=== PATIENT | male | born 1950 | race Caucasian/White ===

== ENCOUNTER → 2017-01-19 | Outpatient (CLI) | payer MEDICARE, BC ==
--- NOTE | 2017-01-19 10:39 | MR ---
EXAMINATION TYPE: MR shoulder LT wo con DATE OF EXAM: 01/19/2017 10:18 AM COMPARISON: NONE HISTORY: lt shoulder pain TECHNIQUE: Multiplanar, multisequence imaging of the left shoulder is performed without contrast. FINDINGS: Rotator Cuff: There is a through thickness tear of the distal margin of the supraspinatus tendon gertrude uring 12 x 6 mm. Additionally near the musculotendinous junction there appears to be an additional ar ea of severe tendinopathy and partial through thickness tear measuring 5 mm. Increased abnormal signal involving the distal margin of the infraspinatus tendon seen with partial t hrough thickness tear near the insertion and no retraction. There is thickening and increased signal throughout the distal margin the subscapularis tendon compat ible with tendinosis. Acromioclavicular Joint: Hypertrophic change of the AC joint noted with findings compatible with impi ngement. Mild atrophic changes of the supraspinatus and infraspinatus muscles noted. Glenohumeral Joint: No sizable joint effusion. Glenohumeral ligaments appear intact. Labrum: Truncation of the anterior superior labrum suspicious for tear. Biceps Tendon: The long head of biceps is in normal location within bicipital groove. There is thinni ng of the intracapsular portion of the biceps tendon and biceps anchor compatible with tendinopathy a nd partial tear. No retraction. Bone marrow signal: No focal abnormal marrow signal is appreciated. Other: No additional significant abnormality is appreciated. IMPRESSION: 1. Impingement with diffuse tendinopathy involving the supraspinatus, infraspinatus and subscapularis tendons. 2. Partial through thickness tear involving the distal margin supraspinatus tendon measuring 12 mm. A dditional tear near the musculotendinous junction compatible with partial through thickness tear gertrude uring 5 mm. 3. Tendinopathy infraspinatus tendon with partial tear near the insertion through thickness but no re traction. 4. Thickening and increased signal throughout the distal margin of the subscapularis compatible with tendinosis. 5. Anterior superior labral tear 6. Thinning and increased signal within the intracapsular portion of the biceps tendon extending the biceps anchor compatible tendinopathy and probable intrasubstance tear but no retraction or through t hickness tear.
== END | disposition home or self-care (01) ==
LOC: RADMRIMAIN 09:40
PROVIDERS: ATTEND Orthopaedic Surgery
DX: M75.112 Incomplete rotator cuff tear or rupture of left shoulder, not specified as traumatic (principal); S43.402A Unspecified sprain of left shoulder joint, initial encounter; S46.812A Strain of other muscles, fascia and tendons at shoulder and upper arm level, left arm, initial encounter; M25.812 Other specified joint disorders, left shoulder; M67.814 Other specified disorders of tendon, left shoulder; R93.7 Abnormal findings on diagnostic imaging of other parts of musculoskeletal system

== ENCOUNTER 2017-04-12 23:11 | Inpatient (IN) | payer MEDICARE, BC ==
[2017-04-12 23:23] VITALS: RESP 16
[2017-04-13 00:38] LABS: Basophils # (A) 0.1 k/uL (0-0.2); Basophils % (A) 1 %; CH 31.1; Eosinophils # (A) 0.2 k/uL (0-0.7); Eosinophils % (A) 2 %; HCT 39.9 % (39.0-53.0); HDW 2.67; HGB 13.6 gm/dL (13.0-17.5); Luc % (Auto) 1; Lymphocytes # (A) 1.3 k/uL (1.0-4.8); Lymphocytes % (A) 14 %; MCH 30.5 pg (25.0-35.0); MCHC 34.2 g/dL (31.0-37.0); MCV 89.3 fL (80.0-100.0); Mean Platelet Volume 7.4; Monocytes # (A) 0.4 k/uL (0-1.0); Monocytes % (A) 4 %; Neutrophils # (A) 7.5 k/uL (1.3-7.7); Neutrophils % (A) 78 %; RBC 4.47 m/uL (4.30-5.90); RDW 13.3 % (11.5-15.5); WBC 9.6 k/uL (3.8-10.6); WBC (Perox) 9.29
[2017-04-13 00:40] LABS: Appearance,Urine Clear (Clear); Bilirubin,Urine Negative (Negative); Glucose,Urine (UA) Negative (Negative); Ketones,Urine Negative (Negative); Leukocyte Esterase,Urine Negative (Negative); Nitrite,Urine Negative (Negative); PH, Urine 6.5 (5.0-8.0); Protein,Urine Trace (Negative); Specific Gravity,Urine 1.009 (1.001-1.035); UA Billing (MACRO vs. MICRO) CHEM; Urobilinogen,Urine <2.0 mg/dL (<2.0)
--- NOTE | 2017-04-13 00:45 | ED ---
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 History is from both the patient and his . The patient states that he was feeling in his usual state of health until going to bed tonight. The patient's noted that he had a short interval of what sounded like lipsmacking and she woke him up. The patient has a history of brief episodes of this going back years. He will have a few seconds of lipsmacking followed by staring off. They had been seen by the neurologist, and a had follow-up set up in [place] in May for this issue. After the patient's woke him, he use the bathroom and went back to bed. Shortly after lying down he then had what sounds like about 2 minutes of tonic-clonic activity followed by what sounds like a 5-10 minute postictal period per his 's description. The patient is reportedly now back at his baseline. The patient states that he does have a mild, generalized headache. Is deftly not worst headache of life. The patient is denying any neurologic symptoms currently. MD Complaint: seizure -: minutes(s) Description of Episode: loss of consciousness, tonic-clonic movement, post- event confusion Duration of Episode: 2 -: minutes(s) Witnessed: yes - by bystander () Trauma: No Seizure History: other Place: home Possible Precipitating Event: none Associated Symptoms: denies other symptoms Treatments Prior to Arrival: none - Related Data Home Medications Medication Instructions Recorded Confirmed amLODIPine [Norvasc] 10 mg PO DAILY 08/08/16 04/12/17 Aspirin [Adult Low Dose Aspirin EC] 81 mg PO DAILY 08/09/16 04/12/17 Atorvastatin [Lipitor] 80 mg PO DAILY 08/09/16 04/12/17 Cholecalciferol [Vitamin D3] 2,000 unit PO DAILY 08/09/16 04/12/17 Lisinopril [Zestril] 5 mg PO DAILY 08/09/16 04/12/17 Metoprolol Tartrate [Lopressor] 50 mg PO DAILY 08/09/16 04/12/17 Nitroglycerin Sl Tabs [Nitrostat] 0.4 mg SL Q5M PRN 08/09/16 04/12/17 Tamsulosin HCl [Flomax] 0.4 mg PO DAILY 08/09/16 04/12/17 Ascorbic Acid [Vitamin C] 1,000 mg PO DAILY 04/12/17 04/12/17 Multivitamins, Thera [Multivitamin 1 tab PO DAILY 04/12/17 04/12/17 (formulary)] Psyllium Husk 100% [Metamucil 6 gm PO DAILY 04/12/17 04/12/17 Packet] Allergies Allergy/AdvReac Type Severity Reaction Status Date / Time No Known Allergies Allergy Verified 04/12/17 23:20 Review of Systems ROS Statement: Those systems with pertinent positive or pertinent negative responses have been documented in the HPI. ROS Other: All systems not noted in ROS Statement are negative. Constitutional: Denies: fever, chills, weakness Eyes: Denies: vision change ENT: Denies: ear pain, hearing loss Respiratory: Denies: cough, dyspnea Cardiovascular: Denies: chest pain, palpitations, edema, syncope Gastrointestinal: Denies: abdominal pain, vomiting, diarrhea Genitourinary: Denies: dysuria, hematuria Musculoskeletal: Denies: back pain Skin: Denies: rash Neurological: Reports: as per HPI, headache, other (Possible seizure). Denies: weakness, numbness, paresthesias, confusion Past Medical History Past Medical History: Coronary Artery Disease (CAD), Cancer, Hyperlipidemia, Hypertension, Myocardial Infarction ([place]), Prostate Disorder Additional Past Medical History / Comment(s): melanoma on top of scalp Last Myocardial Infarction Date:: 01/13/14 History of Any Multi-Drug Resistant Organisms: None Reported Past Surgical History: Heart Catheterization With Stent, Orthopedic Surgery Additional Past Surgical History / Comment(s): rotator cuff surgery (8 yrs ago) Past Anesthesia/Blood Transfusion Reactions: No Reported Reaction Date of Last Stent Placement:: 01/13/14 Past Psychological History: No Psychological Hx Reported Smoking Status: Former smoker Past Alcohol Use History: Occasional Past Drug Use History: None Reported - Past Family History Father Family Medical History: Coronary Artery Disease (CAD), Hypertension, Myocardial Infarction ([place]) Mother Family Medical History: Cancer General Exam Limitations: no limitations General appearance: alert, in no apparent distress Head exam: Present: atraumatic, normocephalic, normal inspection Eye exam: Present: normal appearance, PERRL, EOMI. Absent: scleral icterus, conjunctival injection, nystagmus ENT exam: Present: normal oropharynx Neck exam: Present: normal inspection. Absent: meningismus Respiratory exam: Present: normal lung sounds bilaterally. Absent: respiratory distress, wheezes, rales, rhonchi, stridor Cardiovascular Exam: Present: regular rate, normal rhythm, systolic murmur ( Grade 3/6 systolic ejection murmur). Absent: diastolic murmur, rubs, gallop GI/Abdominal exam: Present: soft. Absent: distended, tenderness, guarding, rebound, mass Extremities exam: Present: normal inspection, normal capillary refill. Absent: pedal edema, calf tenderness Back exam: Present: normal inspection. Absent: CVA tenderness (R), CVA tenderness (L) Neurological exam: Present: alert, oriented X3, CN II-XII intact. Absent: motor sensory deficit Skin exam: Present: warm, dry, intact, normal color. Absent: rash Course Vital Signs 04/12/17 04/13/17 04/13/17 23:14 00:28 02:02 Temperature 97.7 F Pulse Rate 91 78 66 Respiratory 16 16 16 Rate Blood Pressure 153/88 153/88 190/62 O2 Sat by Pulse 94 L 96 97 Oximetry 04/13/17 02:32 Temperature Pulse Rate 73 Respiratory 16 Rate Blood Pressure 151/77 O2 Sat by Pulse 96 Oximetry Medical Decision Making - Lab Data Result diagrams: 04/13/17 00:25 04/13/17 00:25 Lab Results 04/13/17 04/13/17 04/13/17 Range/Units 00:25 00:25 00:25 WBC 9.6 (3.8-10.6) k/uL RBC 4.47 (4.30-5.90) m/uL Hgb 13.6 (13.0-17.5) gm/dL Hct 39.9 (39.0-53.0) % MCV 89.3 (80.0-100.0) fL MCH 30.5 (25.0-35.0) pg MCHC 34.2 (31.0-37.0) g/dL RDW 13.3 (11.5-15.5) % Plt Count 187 (150-450) k/uL Neutrophils % 78 % Lymphocytes % 14 % Monocytes % 4 % Eosinophils % 2 % Basophils % 1 % Neutrophils # 7.5 (1.3-7.7) k/uL Lymphocytes # 1.3 (1.0-4.8) k/uL Monocytes # 0.4 (0-1.0) k/uL Eosinophils # 0.2 (0-0.7) k/uL Basophils # 0.1 (0-0.2) k/uL Sodium 139 (137-145) mmol/L Potassium 3.6 (3.5-5.1) mmol/L Chloride 107 (98-107) mmol/L Carbon Dioxide 22 (22-30) mmol/L Anion Gap 10 mmol/L BUN 13 (9-20) mg/dL Creatinine 0.80 (0.66-1.25) mg/dL Est GFR (MDRD) Af Amer >60 (>60 ml/min/1.73 sqM) Est GFR (MDRD) Non-Af >60 (>60 ml/min/1.73 sqM) Glucose 115 H (74-99) mg/dL POC Glucose (mg/dL) (75-99) mg/dL POC Glu Marketing Education Teacher ID Calcium 8.7 (8.4-10.2) mg/dL Total Bilirubin 0.6 (0.2-1.3) mg/dL AST 21 (17-59) U/L ALT 35 (21-72) U/L Alkaline Phosphatase 52 (38-126) U/L Total Protein 6.2 L (6.3-8.2) g/dL Albumin 3.9 (3.5-5.0) g/dL Urine Color Light Yellow Urine Appearance Clear (Clear) Urine pH 6.5 (5.0-8.0) Ur Specific Morrison 1.009 (1.001-1.035) Urine Protein Trace H (Negative) Urine Glucose (UA) Negative (Negative) Urine Ketones Negative (Negative) Urine Blood Negative (Negative) Urine Nitrite Negative (Negative) Urine Bilirubin Negative (Negative) Urine Urobilinogen <2.0 (<2.0) mg/dL Ur Leukocyte Esterase Negative (Negative) Urine Opiates Screen Not Detected (NotDetected) Ur Oxycodone Screen Not Detected (NotDetected) Urine Methadone Screen Not Detected (NotDetected) Ur Propoxyphene Screen Not Detected (NotDetected) Ur Barbiturates Screen Not Detected (NotDetected) U Tricyclic Antidepress Not Detected (NotDetected) Ur Phencyclidine Scrn Not Detected (NotDetected) Ur Amphetamines Screen Not Detected (NotDetected) U Methamphetamines Scrn Not Detected (NotDetected) U Benzodiazepines Scrn Not Detected (NotDetected) Urine Cocaine Screen Not Detected (NotDetected) U Marijuana (THC) Screen Not Detected (NotDetected) Serum Alcohol <10 mg/dL 04/13/17 Range/Units 02:35 WBC (3.8-10.6) k/uL RBC (4.30-5.90) m/uL Hgb (13.0-17.5) gm/dL Hct (39.0-53.0) % MCV (80.0-100.0) fL MCH (25.0-35.0) pg MCHC (31.0-37.0) g/dL RDW (11.5-15.5) % Plt Count (150-450) k/uL Neutrophils % % Lymphocytes % % Monocytes % % Eosinophils % % Basophils % % Neutrophils # (1.3-7.7) k/uL Lymphocytes # (1.0-4.8) k/uL Monocytes # (0-1.0) k/uL Eosinophils # (0-0.7) k/uL Basophils # (0-0.2) k/uL Sodium (137-145) mmol/L Potassium (3.5-5.1) mmol/L Chloride (98-107) mmol/L Carbon Dioxide (22-30) mmol/L Anion Gap mmol/L BUN (9-20) mg/dL Creatinine (0.66-1.25) mg/dL Est GFR (MDRD) Af Amer (>60 ml/min/1.73 sqM) Est GFR (MDRD) Non-Af (>60 ml/min/1.73 sqM) Glucose (74-99) mg/dL POC Glucose (mg/dL) 126 H (75-99) mg/dL POC Glu Marketing Education Teacher ID [place], Ting Calcium (8.4-10.2) mg/dL Total Bilirubin (0.2-1.3) mg/dL AST (17-59) U/L ALT (21-72) U/L Alkaline Phosphatase (38-126) U/L Total Protein (6.3-8.2) g/dL Albumin (3.5-5.0) g/dL Urine Color Urine Appearance (Clear) Urine pH (5.0-8.0) Ur Specific Morrison (1.001-1.035) Urine Protein (Negative) Urine Glucose (UA) (Negative) Urine Ketones (Negative) Urine Blood (Negative) Urine Nitrite (Negative) Urine Bilirubin (Negative) Urine Urobilinogen (<2.0) mg/dL Ur Leukocyte Esterase (Negative) Urine Opiates Screen (NotDetected) Ur Oxycodone Screen (NotDetected) Urine Methadone Screen (NotDetected) Ur Propoxyphene Screen (NotDetected) Ur Barbiturates Screen (NotDetected) U Tricyclic Antidepress (NotDetected) Ur Phencyclidine Scrn (NotDetected) Ur Amphetamines Screen (NotDetected) U Methamphetamines Scrn (NotDetected) U Benzodiazepines Scrn (NotDetected) Urine Cocaine Screen (NotDetected) U Marijuana (THC) Screen (NotDetected) Serum Alcohol mg/dL - EKG Data -: EKG Interpreted by Ok EKG shows normal: sinus rhythm, axis (Normal), intervals (Normal), QRS complexes (Normal), ST-T waves (Normal) Rate: normal (Rate 87 bpm) Interpretation: normal EKG Disposition Clinical Impression: New onset seizure Disposition: ADMITTED IP TO THIS [facility] Condition: Good Referrals: Kenneth Calvert DO [Primary Care Provider] - 1-2 days
[2017-04-13 00:49] LABS: ALT 35 U/L (21-72); AST 21 U/L (17-59); Alcohol <10 mg/dL; Alkaline Phosphatase 52 U/L (38-126); Anion Gap 10 mmol/L; Blood Urea Nitrogen 13 mg/dL (9-20); Calcium 8.7 mg/dL (8.4-10.2); Carbon Dioxide 22 mmol/L (22-30); Chloride 107 mmol/L (98-107); Glucose 115 mg/dL (74-99); Non-African American GFR(MDRD) >60 (>60 ml/min/1.73 sqM); Potassium 3.6 mmol/L (3.5-5.1); Sodium 139 mmol/L (137-145); Total Bilirubin 0.6 mg/dL (0.2-1.3); Total Protein 6.2 g/dL (6.3-8.2)
--- NOTE | 2017-04-13 01:26 | CT ---
EXAM: CT Head Without Intravenous Contrast CLINICAL HISTORY: Reason: seizure TECHNIQUE: Axial computed tomography images of the head/brain without intravenous contrast. CTDI is 58.00 mGy and DLP is 1075.40 mGy-cm. This CT exam was performed using one or more of the following dose reduction techniques: automated exposure control, adjustment of the mA and/or kV according to patient size, and/or use of iterative reconstruction technique. COMPARISON: 08/08/[address] FINDINGS: Brain: There is again mild generalized volume loss with minimal presumed chronic small vessel ischemic changes. No identifiable acute or recent territorial infarct. No space-occupying mass lesion, mass effect, shift or intracranial hemorrhage has developed. Ventricles: Ventricles are stable without evidence of hydrocephalus. Bones/joints: Stable. No acute fracture. Soft tissues: Unremarkable. Vasculature: Intracranial atherosclerosis is noted. Sinuses: There is again mild diffuse paranasal sinus mucosal thickening without air-fluid level seen. Mastoid air cells: Unremarkable. No mastoid effusion. IMPRESSION: 1. Stable chronic appearing findings, without new acute intracranial abnormality identified, as above. Note, early infarct may initially be inapparent by CT. 2. There is again mild diffuse paranasal sinus mucosal thickening.
[2017-04-13 02:39] LABS: Glucose,Whole Blood 126 mg/dL (75-99)
[2017-04-13] MEDS ORDERED: SODIUM CHLORIDE 0.9% 1,000 ML IV SCH (03:00)
[2017-04-13] MEDS ORDERED: NALOXONE 0.4 MG/ML 1 ML VIAL IV PRN (03:00)
[2017-04-13 04:32] VITALS: BMI 33.8
[2017-04-13] MEDS ORDERED: MULTIVITAMINS, THERA 1 EACH TAB PO SCH (09:00)
[2017-04-13] MEDS ORDERED: METOPROLOL TARTRATE 50 MG TAB PO SCH (09:00)
[2017-04-13] MEDS ORDERED: LISINOPRIL 5 MG TAB PO SCH (09:00)
[2017-04-13] MEDS ORDERED: amLODIPine 10 MG TAB PO SCH (09:00)
[2017-04-13] MEDS ORDERED: TAMSULOSIN 0.4 MG CAP.ER.24H PO SCH (09:00)
[2017-04-13] MEDS ORDERED: ASCORBIC ACID 500 MG TAB PO SCH (09:00)
[2017-04-13] MEDS ORDERED: ATORVASTATIN 80 MG TAB PO SCH (09:00)
[2017-04-13] MEDS ORDERED: CHOLECALCIFEROL 1,000 UNIT TAB PO SCH (09:00)
[2017-04-13] MEDS ORDERED: PSYLLIUM HUSK 100% 6 GM PACKET PO SCH ×2 (09:00→21:00)
[2017-04-13] MEDS ORDERED: ASPIRIN 81 MG CHEW PO SCH (09:00)
[2017-04-13 15:09] VITALS: BP 158/79; PULSE 57; TEMP 97.9
--- NOTE | 2017-04-13 16:42 | P.HPIM ---
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 History is from both the patient and his . The patient states that he was feeling in his usual state of health until going to bed tonight. The patient's noted that he had a short interval of what sounded like lipsmacking and she woke him up. The patient has a history of brief episodes of this going back years. He will have a few seconds of lipsmacking followed by staring off. They had been seen by the neurologist, and a had follow-up set up in [place] in May for this issue. After the patient's woke him, he use the bathroom and went back to bed. Shortly after lying down he then had what sounds like about 2 minutes of tonic-clonic activity followed by what sounds like a 5-10 minute postictal period per his 's description. The patient is reportedly now back at his baseline. The patient states that he does have a mild, generalized headache. Is deftly not worst headache of life. The patient is denying any neurologic symptoms Most of the history was obtained from a ER physician's dictation, patient only partially remembers the history and family is not available. Patient was later valid by neurology and EEG was done which was negative. MRI was done in [facility] and patient has a follow-up appointment in [facility] I do not have an MRA results available at this point of time but neurology cleared him for discharge to follow up with neurology as an outpatient in [facility]. Review of Systems REVIEW OF SYSTEMS: CONSTITUTIONAL: No fever, no malaise, no fatigue. HEENT: No recent visual problems or hearing problems. Denied any sore throat. CARDIOVASCULAR: No chest pain, orthopnea, PND, no palpitations, no syncope. PULMONARY: No shortness of breath, no cough, no hemoptysis. GASTROINTESTINAL: No diarrhea, no nausea, no vomiting, no abdominal pain. Normoactive bowel sounds. NEUROLOGICAL: No headaches, no weakness, no numbness. HEMATOLOGICAL: Denies any bleeding or petechiae. GENITOURINARY: Denies any burning micturition, frequency, or urgency. MUSCULOSKELETAL/RHEUMATOLOGICAL: Denies any joint pain, swelling, or any muscle pain. ENDOCRINE: Denies any polyuria or polydipsia. The rest of the 14-point review of systems is negative. Past Medical History Past Medical History: Coronary Artery Disease (CAD), Cancer, Hyperlipidemia, Hypertension, Myocardial Infarction ([place]), Prostate Disorder Additional Past Medical History / Comment(s): melanoma on top of scalp. past seizure like episodes Last Myocardial Infarction Date:: 01/13/14 History of Any Multi-Drug Resistant Organisms: None Reported Past Surgical History: Heart Catheterization With Stent, Orthopedic Surgery Additional Past Surgical History / Comment(s): right rotator cuff surgery (8 yrs ago), torn tendon repair to left arm. Past Anesthesia/Blood Transfusion Reactions: No Reported Reaction Date of Last Stent Placement:: 01/13/14 Past Psychological History: No Psychological Hx Reported Smoking Status: Former smoker Past Alcohol Use History: Daily Additional Past Alcohol Use History / Comment(s): patient stated has 2 shots of whiskey a day. occasional beer Past Drug Use History: None Reported - Past Family History Father Family Medical History: Coronary Artery Disease (CAD), Hypertension, Myocardial Infarction ([place]) Mother Family Medical History: Cancer Medications and Allergies Home Medications Medication Instructions Recorded Confirmed Type amLODIPine [Norvasc] 10 mg PO DAILY 08/08/16 04/12/17 History Aspirin [Adult Low Dose Aspirin EC] 81 mg PO DAILY 08/09/16 04/12/17 History Atorvastatin [Lipitor] 80 mg PO DAILY 08/09/16 04/12/17 History Cholecalciferol [Vitamin D3] 2,000 unit PO DAILY 08/09/16 04/12/17 History Lisinopril [Zestril] 5 mg PO DAILY 08/09/16 04/12/17 History Metoprolol Tartrate [Lopressor] 50 mg PO DAILY 08/09/16 04/12/17 History Nitroglycerin Sl Tabs [Nitrostat] 0.4 mg SL Q5M PRN 08/09/16 04/12/17 History Tamsulosin HCl [Flomax] 0.4 mg PO DAILY 08/09/16 04/12/17 History Ascorbic Acid [Vitamin C] 1,000 mg PO DAILY 04/12/17 04/12/17 History Multivitamins, Thera [Multivitamin 1 tab PO DAILY 04/12/17 04/12/17 History (formulary)] Psyllium Husk 100% [Metamucil 6 gm PO DAILY 04/12/17 04/12/17 History Packet] Allergies Allergy/AdvReac Type Severity Reaction Status Date / Time No Known Allergies Allergy Verified 04/12/17 23:20 Physical Exam Vitals: Vital Signs Temp Pulse Pulse Resp BP BP Pulse Ox 04/13/17 15:00 97.9 F 57 L 16 158/79 95 04/13/17 07:00 99.1 F 58 L 16 133/81 94 L 04/13/17 04:35 97.3 F L 63 16 136/84 95 04/13/17 03:59 98.3 F 66 16 143/83 96 04/13/17 02:32 73 16 151/77 96 04/13/17 02:02 97.7 F 66 16 190/62 97 04/13/17 00:28 78 16 153/88 96 04/12/17 23:14 91 16 153/88 94 L Intake and Output 04/13/17 04/13/17 04/13/17 06:59 14:59 22:59 Output Total 350 Balance -350 Output: Urine 350 Other: # Voids 2 Weight 110 kg 110 kg Patient Weight 04/14/17 06:59 Weight 110 kg PHYSICAL EXAMINATION: GENERAL: The patient is alert and oriented x3, not in any acute distress. Well developed, well nourished. HEENT: Pupils are round and equally reacting to light. EOMI. No scleral icterus. No conjunctival pallor. Normocephalic, atraumatic. No pharyngeal erythema. No thyromegaly. CARDIOVASCULAR: S1 and S2 present. No murmurs, rubs, or gallops. PULMONARY: Chest is clear to auscultation, no wheezing or crackles. ABDOMEN: Soft, nontender, nondistended, normoactive bowel sounds. No palpable organomegaly. MUSCULOSKELETAL: No joint swelling or deformity. EXTREMITIES: No cyanosis, clubbing, or pedal edema. NEUROLOGICAL: Gross neurological examination did not reveal any focal deficits. SKIN: No rashes. Results CBC & Chem 7: 04/13/17 00:25 04/13/17 00:25 Labs: Abnormal Lab Results - Last 24 Hours (Table) 04/13/17 04/13/17 04/13/17 Range/Units 00:25 00:25 02:35 Glucose 115 H (74-99) mg/dL POC Glucose (mg/dL) 126 H (75-99) mg/dL Total Protein 6.2 L (6.3-8.2) g/dL Urine Protein Trace H (Negative) Thrombosis Risk Factor Assmnt - Choose All That Apply Any of the Below Risk Factors Present?: Yes Each Factor Represents 1 point: Obesity (BMI >25) Other Risk Factors: Yes Other congenital or acquired thrombophilia - If yes, enter type in comment: No Thrombosis Risk Factor Assessment Total Risk Factor Score: 1 Thrombosis Risk Factor Assessment Level: Low Risk Assessment and Plan Plan: 1 patient is admitted for possibly a seizure: Although there is need no evidence of seizure on EEG neurology validate the patient and that not requiring any antiseizure medications patient will follow up with neurology clinic in [facility]. #2 coronary artery disease 3 hypertension 4 hyperlipidemia #5 prostate disorder Above mentioned chronic medical problems patient will continue his home medications.
--- NOTE | 2017-04-13 16:42 | P.DS ---
Providers Date of admission: 04/13/17 03:01 Attending physician: Teresa Finn Consults: 04/13/17 03:08 Consult Physician Routine Consulting Provider: Gerald Lindsay Consult Reason/Comments: new onset seizure Do you want consulting provider notified?: Yes [facility] Course: Please refer to my HPI Patient Condition at Discharge: Good Plan - Discharge Summary New Discharge Prescriptions: No Action amLODIPine [Norvasc] 10 mg PO DAILY Atorvastatin [Lipitor] 80 mg PO DAILY Cholecalciferol [Vitamin D3] 2,000 unit PO DAILY Nitroglycerin Sl Tabs [Nitrostat] 0.4 mg SL Q5M PRN PRN Reason: Chest Pain Metoprolol Tartrate [Lopressor] 50 mg PO DAILY Tamsulosin HCl [Flomax] 0.4 mg PO DAILY Lisinopril [Zestril] 5 mg PO DAILY Aspirin [Adult Low Dose Aspirin EC] 81 mg PO DAILY Multivitamins, Thera [Multivitamin (formulary)] 1 tab PO DAILY Psyllium Husk 100% [Metamucil Packet] 6 gm PO DAILY Ascorbic Acid [Vitamin C] 1,000 mg PO DAILY Discharge Medication List amLODIPine [Norvasc] 10 mg PO DAILY 08/08/16 [History] Aspirin [Adult Low Dose Aspirin EC] 81 mg PO DAILY 08/09/16 [History] Atorvastatin [Lipitor] 80 mg PO DAILY 08/09/16 [History] Cholecalciferol [Vitamin D3] 2,000 unit PO DAILY 08/09/16 [History] Lisinopril [Zestril] 5 mg PO DAILY 08/09/16 [History] Metoprolol Tartrate [Lopressor] 50 mg PO DAILY 08/09/16 [History] Nitroglycerin Sl Tabs [Nitrostat] 0.4 mg SL Q5M PRN 08/09/16 [History] Tamsulosin HCl [Flomax] 0.4 mg PO DAILY 08/09/16 [History] Ascorbic Acid [Vitamin C] 1,000 mg PO DAILY 04/12/17 [History] Multivitamins, Thera [Multivitamin (formulary)] 1 tab PO DAILY 04/12/17 [History ] Psyllium Husk 100% [Metamucil Packet] 6 gm PO DAILY 04/12/17 [History] Follow up Appointment(s)/Referral(s): Kenneth Calvert DO [Primary Care Provider] - 3 Days
--- NOTE | 2017-04-13 18:11 | P.CNNES ---
History of Present Illness Consult date: 04/13/17 Reason for Consult: Patient admitted with new onset seizure. History of Present Illness: This patient is a 66-year-old right-handed white male who was admitted to hospital yesterday with possible new onset seizure. According to the patient he has been evaluated over the last 6 months for recurrent episodes and spells. He states he has had 4 episodes of possible seizure. He underwent an MRI of the brain earlier this year which was reported entirely normal. He continues to have episodes of seizure-like activity. On admission yesterday he was apparently in bed and developed some lip smacking and some jerking. He apparently alarmed his who immediately decided to bring him to the hospital as he appeared to be confused right after words. He was seen in the emergency room by Dr. Rodgers. He underwent a computed tomography scan of the brain which revealed chronic white matter changes with no evidence of acute stroke or hemorrhage. He underwent a routine EEG today which was reviewed and was negative for any evidence of epileptic seizure focus. Patient apparently is scheduled to undergo further evaluation and an epilepsy monitoring unit in May. He is not on any seizure medication at this time. He states he is back to normal at this time and would like to go home. We suggest he may be discharged and should follow-up with outpatient epilepsy monitoring in May as scheduled. We will continue to monitor his progress closely during this admission. So overall prognosis at this time remains guarded. Neurology is now been consulted for further evaluation and recommendations. Review of Systems Constitutional: Denies chills, Denies fever Eyes: denies blurred vision, denies pain Ears, nose, mouth and throat: Denies headache, Denies sore throat Cardiovascular: Denies chest pain, Denies shortness of breath Respiratory: Denies cough Gastrointestinal: Denies abdominal pain, Denies diarrhea, Denies nausea, Denies vomiting Musculoskeletal: Denies myalgias Integumentary: Denies pruritus, Denies rash Neurological: Reports change in mentation, Reports convulsions, Reports seizures , Denies numbness, Denies weakness Psychiatric: Denies anxiety, Denies depression Endocrine: Denies fatigue, Denies weight change Past Medical History Past Medical History: Coronary Artery Disease (CAD), Cancer, Hyperlipidemia, Hypertension, Myocardial Infarction (HI), Prostate Disorder Additional Past Medical History / Comment(s): melanoma on top of scalp. past seizure like episodes Last Myocardial Infarction Date:: 01/13/14 History of Any Multi-Drug Resistant Organisms: None Reported Past Surgical History: Heart Catheterization With Stent, Orthopedic Surgery Additional Past Surgical History / Comment(s): right rotator cuff surgery (8 yrs ago), torn tendon repair to left arm. Past Anesthesia/Blood Transfusion Reactions: No Reported Reaction Date of Last Stent Placement:: 01/13/14 Past Psychological History: No Psychological Hx Reported Smoking Status: Former smoker Past Alcohol Use History: Daily Additional Past Alcohol Use History / Comment(s): patient stated has 2 shots of whiskey a day. occasional beer Past Drug Use History: None Reported - Past Family History Father Family Medical History: Coronary Artery Disease (CAD), Hypertension, Myocardial Infarction (HI) Mother Family Medical History: Cancer Medications and Allergies Home Medications Medication Instructions Recorded Confirmed Type amLODIPine [Norvasc] 10 mg PO DAILY 08/08/16 04/12/17 History Aspirin [Adult Low Dose Aspirin EC] 81 mg PO DAILY 08/09/16 04/12/17 History Atorvastatin [Lipitor] 80 mg PO DAILY 08/09/16 04/12/17 History Cholecalciferol [Vitamin D3] 2,000 unit PO DAILY 08/09/16 04/12/17 History Lisinopril [Zestril] 5 mg PO DAILY 08/09/16 04/12/17 History Metoprolol Tartrate [Lopressor] 50 mg PO DAILY 08/09/16 04/12/17 History Nitroglycerin Sl Tabs [Nitrostat] 0.4 mg SL Q5M PRN 08/09/16 04/12/17 History Tamsulosin HCl [Flomax] 0.4 mg PO DAILY 08/09/16 04/12/17 History Ascorbic Acid [Vitamin C] 1,000 mg PO DAILY 04/12/17 04/12/17 History Multivitamins, Thera [Multivitamin 1 tab PO DAILY 04/12/17 04/12/17 History (formulary)] Psyllium Husk 100% [Metamucil 6 gm PO DAILY 04/12/17 04/12/17 History Packet] Allergies Allergy/AdvReac Type Severity Reaction Status Date / Time No Known Allergies Allergy Verified 04/12/17 23:20 Physical Examination - Vital Signs Vital Signs: Vital Signs Temp Pulse Pulse Resp BP BP Pulse Ox 04/13/17 07:00 99.1 F 58 L 16 133/81 94 L 04/13/17 04:35 97.3 F L 63 16 136/84 95 04/13/17 03:59 98.3 F 66 16 143/83 96 04/13/17 02:32 73 16 151/77 96 04/13/17 02:02 97.7 F 66 16 190/62 97 04/13/17 00:28 78 16 153/88 96 04/12/17 23:14 91 16 153/88 94 L Intake and Output 04/13/17 04/13/17 04/13/17 06:59 14:59 22:59 Output Total 350 Balance -350 Output: Urine 350 Other: # Voids 2 Weight 110 kg 110 kg Patient Weight 04/14/17 06:59 Weight 110 kg - Constitutional General appearance: average body habitus, cooperative - EENT EENT: PERRL, mucous membranes moist - Respiratory Respiratory: lungs clear, normal breath sounds - Cardiovascular Cardiovascular: regular rate, normal S1, normal S2 Extremities: no peripheral edema bilaterally - Gastrointestinal Gastrointestinal: normoactive bowel sounds - Integumentary Integumentary: normal - Neurologic Cranial nerve examination: PERRL, EOMI, VFF, V1/V2/V3 grossly intact, face symmetric, tongue midline, intact gag reflex, intact corneal reflex, normal palatal elevation Speech examination: intact Sensorimotor examination: intact Detailed motor examination: grossly full strength in all extremities Motor examination - right side: 5/5: biceps, triceps, wrist flexion, wrist extension, security system analyst, hip flexors, knee extensors, dorsiflexion, toe extension (EHL) , plantarflexion Motor examination - left side: 5/5: biceps, triceps, wrist flexion, wrist extension, security system analyst, hip flexors, knee extensors, dorsiflexion, toe extension (EHL) , plantarflexion Detailed sensory examination: intact Reflex and gait examination: intact Reflexes: 1+: ankle, bicep, knee, tricep - Musculoskeletal Musculoskeletal: no pain - Psychiatric Psychiatric: mood/affect appropriate, cooperative Results - Laboratory Findings CBC and BMP: 04/13/17 00:25 04/13/17 00:25 Abnormal Lab Findings: Abnormal Labs 04/13/17 04/13/17 04/13/17 00:25 00:25 02:35 Glucose 115 H POC Glucose (mg/dL) 126 H Total Protein 6.2 L Urine Protein Trace H Assessment and Plan (1) New onset seizure Status: Acute Code(s): R56.9 - UNSPECIFIED CONVULSIONS (2) Encephalopathy acute Status: Acute Code(s): G93.40 - ENCEPHALOPATHY, UNSPECIFIED (3) Altered mental status Status: Acute Code(s): R41.82 - ALTERED MENTAL STATUS, UNSPECIFIED Plan: This patient is a 66-year-old male who apparently had an episode yesterday evening while asleep. Apparently he had some lip smacking and some jerking in bed. His noted these changes and brought him to the emergency room. He underwent a computed tomography scan of the brain which was reported negative for any acute changes. He has had 4 such episodes in the last 6 months. He is scheduled to undergo further evaluation at [facility] and May. His neurological examination today is nonfocal. And went a routine EEG and CAT scan of the brain both of which are negative for any acute findings. Patient is to be considered for discharge home later today. He should follow-up with his primary care physician and follow-up with further evaluation at [facility] in May for further management. His overall prognosis at this time remains very guarded. He shouldn't is advised of the [employer] driving law which states he should not be driving for appeared of 6 months following his last seizure-like event. His overall prognosis at this time remains very guarded. Time with Patient: Greater than 30
--- NOTE | 2017-04-14 04:57 | EEG ---
DATE OF SERVICE: 04/13/2017 ELECTROENCEPHALOGRAPHIC EXAMINATION REPORT INDICATIONS FOR EXAMINATION: This patient is a 66-year-old male being evaluated for possible new onset seizure versus stroke. Patient with syncopal episode and jerking motion while in bed. AGE: 66. EEG FINDINGS: A routine 21-channel awake, digital EEG recording was accomplished utilizing the 10-20 international system with bipolar and referential montages. The background activity in the most alert, resting state consists of a low to medium amplitude, fairly well-developed and well-sustained 7-8 Hz activity over the posterior head regions. This posterior rhythm attenuates to eye opening. There is a small amount of low amplitude 18-20 Hz beta activity seen maximally over the anterior head regions. Muscle and movement artifact was observed on a few occasions during the tracing. Hyperventilation was not performed. Photic stimulation at flash frequencies of 2-30 Hz produced a minimal occipital driving response. No epileptiform discharges were seen. IMPRESSION: This EEG is within normal limits for the patient's age. The EEG failed to reveal any focal, lateralized, or epileptiform abnormalities. Clinical correlation is recommended. PASCUALD
== END 2017-04-13 18:06 | disposition home or self-care (01) | DRG 101 ==
LOC: EC 23:11 → 4MS4W 04-13 03:01
PROVIDERS: ADMIT Hospitalist; ATTEND Hospitalist
DX: R56.9 Unspecified convulsions (principal); I10 Essential (primary) hypertension; E78.5 Hyperlipidemia, unspecified; I25.10 Atherosclerotic heart disease of native coronary artery without angina pectoris; I25.2 Old myocardial infarction; N42.9 Disorder of prostate, unspecified; Z79.82 Long term (current) use of aspirin; Z79.899 Other long term (current) drug therapy; Z85.820 Personal history of malignant melanoma of skin; Z87.891 Personal history of nicotine dependence; Z95.5 Presence of coronary angioplasty implant and graft; Z82.49 Family history of ischemic heart disease and other diseases of the circulatory system
CPT/HCPCS: 36415; 70450; 80053; 80306; 80320; 81003; 85025; 93005; 95819; 99285

== ENCOUNTER 2018-02-18 07:45 | Day surgery (SDC) | payer MEDICARE, BC ==
[~2018-02-18 07:45] MED LIST: ALPRAZolam 0.25 MG TAB PO PRN; ALPRAZolam 0.5 MG TAB PO PRN; ASPIRIN 325 MG TAB PO STA; ATORVASTATIN 80 MG TAB PO STA; NITROGLYCERIN SL TABS 0.4 MG TAB SUBLINGUAL PRN; SODIUM CHLORIDE 0.9% 1,000 ML in EMPTY BAG 1 BAG IV ONE
[2018-02-18] MEDS ORDERED: LIDOCAINE 2% INJ 20 MG/ML (20 ML MDV) ONE (08:41)
[2018-02-18] MEDS ORDERED: VERAPAMIL 2.5 MG/ML 2 ML AMP ONE (08:41)
[2018-02-18] MEDS ORDERED: MIDAZOLAM 2 MG/2 ML VIAL ONE (08:50)
[2018-02-18] MEDS ORDERED: HEPARIN SODIUM 1,000 UN/ML (10ML VL) ONE (08:51)
[2018-02-18] MEDS: MIDAZOLAM 2 MG/2 ML VIAL IVP ONE ×2 (08:56→09:16)
[2018-02-18] MEDS ORDERED: LIDOCAINE 2% INJ 20 MG/ML SQ ONE (08:56)
[2018-02-18] MEDS ORDERED: VERAPAMIL SYRINGE (5 MG/10 ML) INTRAARTER ONE (08:58)
[2018-02-18] MEDS ORDERED: HEPARIN SODIUM 1,000 UN/ML (10ML VL) IV ONE (09:00)
[2018-02-18] MEDS: NITROGLYCERIN 1000MCG/10ML SYRINGE INTRACORON ONE ×3 (09:26→09:45)
[2018-02-18] MEDS ORDERED: BIVALIRUDIN BOLUS 250 MG/50 ML IV ONE (09:32)
[2018-02-18] MEDS ORDERED: BIVALIRUDIN 250 MG in SODIUM CHLORIDE 0.9% 50 ML IV ONE (09:33)
[2018-02-18] MEDS ORDERED: CLOPIDOGREL 75 MG TAB ONE ×2 (09:37→09:38)
[2018-02-18] MEDS ORDERED: CLOPIDOGREL 75 MG TAB PO ONE (09:44)
[2018-02-18] MEDS ORDERED: IOPAMIDOL-370 125ML BTL INJ ONE ×2 (09:50→09:51)
[2018-02-18] MEDS ORDERED: MAG HYDROX/AL HYDROX/SIMETH 30 ML CUP PO PRN (10:01)
[2018-02-18] MEDS ORDERED: ZOLPIDEM 5 MG TAB PO PRN (10:01)
[2018-02-18] MEDS ORDERED: ATROPINE SULFATE 0.1 MG/ML 10ML SYRINGE IV PRN (10:01)
[2018-02-18] MEDS ORDERED: NITROGLYCERIN SL TABS 0.4 MG TAB SUBLINGUAL PRN (10:01)
[2018-02-18] MEDS ORDERED: RX INFO: IV CONTRAST WAS GIVEN 1 EACH MISC MISCELLANE PRN (10:01)
[2018-02-18] MEDS ORDERED: SODIUM CHLORIDE 0.9% 1,000 ML IV SCH (10:15)
--- NOTE | 2018-02-18 12:48 | LTR ---
February 18, 2018 Re: Johnnie Ortez Dear Kenneth: Mr. Johnnie Ortez underwent stenting of the proximal LAD using drug-eluting stent with good angiographic results and without any complication. Lately, he has been experiencing being tired and fatigued and has no energy. He underwent stress test that showed lateral ischemia and because of that I performed the heart catheterization on him. Please call if you have any question or concern regarding him. Sincerely, David Huizar MD MMROSIBEL / MIROSLAVA: [id number] /
--- NOTE | 2018-02-18 13:03 | CC ---
CARDIAC CATHETERIZATION REPORT DATE OF SERVICE: 02/18/2018 PERFORMING PHYSICIAN: David Huizar MD. PROCEDURE PERFORMED: 1. Selective right and left coronary angiogram. 2. Fractional flow reserve (FFR) of the LAD. 3. Successful stenting of the proximal LAD using 3.25 x 23 mm Xience REHANA with good angiographic results. INDICATION: This is a pleasant 67-year-old gentleman with known history of coronary artery disease who underwent stenting of the RCA in 2012, was not feeling well, where he was feeling tired and fatigued. He did not experience any symptoms of chest pain or discomfort. He underwent a myocardial perfusion imaging stress test and that showed and that showed lateral ischemia. In view of that, heart catheterization was recommended. APPROACH: Right radial artery. COMPLICATION: None. LEVEL OF SEDATION: Moderate sedation length of 55 minutes. DESCRIPTION OF PROCEDURE: After obtaining an informed consent, the patient was brought to the Cardiac National Sales Director. The right radial artery was cannulated using micropuncture technique, the micropuncture wire passed easily. Then I placed a 6-Welsh sheath in the right radial artery. After that. I gave the patient 2 mg of verapamil IA and 10,000 units of heparin IV. Selective right and left coronary angiogram was performed using JR4 and JL3.5 catheters. I did perform fractional flow reserve, FFR, and stenting of the LAD. Please see a separate paragraph for that. SELECTIVE CORONARY ANGIOGRAM: 1. The RCA is a large caliber vessel and it is a dominant vessel. The proximal RCA is angiographically normal. The mid RCA is stented and the stent is patent. The RCA distally is angiographically normal. 2. The left main is angiographically normal, it bifurcates into left circumflex and left anterior descending artery. 3. The circumflex is a large caliber vessel. It is codominant vessel. The proximal circ has mild disease only. It gives rise into a large OM branch which appeared to be angiographically normal and the circ in the mid is angiographically normal and distally bifurcates into PDA and PLV branches both are normal. 4. The LAD is a calcified vessel with large diameter. The proximal LAD has mild disease only. The mid LAD has a tubular lesion, appeared to be in the range of 60%. I performed an FFR and it came in to be ischemic 0.77. The LAD distally appeared to be angiographically normal. 5. FFR of the LAD and PCI of the LAD. I continue his anticoagulation with heparin after I checked the ACT and came into be more than 350. Subsequently, after zeroing the Doppler wire and equalizing between the Doppler wire and the guiding catheter which was JL3.5 guiding catheter. I did FFR. The FFR came in to be ischemic even before adenosine infusion. I did, after that decide to stent the LAD. I did wire the LAD using a whisper wire. I did balloon angioplasty using 3.0 x 12 mm x 15 mm balloon and subsequently I performed stenting of the proximal LAD using 3.25 x 23 mm Xience REHANA where the stent was positioned under fluoroscopy guidance and deployed under its nominal pressure. The following angiogram showed good angiographic results and the procedure was completed without any complication. CONCLUSION: 1. Patent stent in the mid right coronary artery. 2. Normal left main coronary artery. 3. Mild disease involving the left circumflex coronary artery. 4. Severe disease involving the proximal left anterior descending artery and the patient underwent stenting of the left anterior descending artery as described above. POSTPROCEDURE MANAGEMENT IS: 1. Maximize medical treatment. 2. Dual anti-platelet therapy. 3. Follow up with the patient. MMODL / IJN: [id number] /
[2018-02-18 13:40] VITALS: BMI 33.2
[2018-02-18] MEDS ORDERED: ADENOSINE 3 MG/ML 4 ML VIAL IVP ONE (14:19)
[2018-02-18] MEDS ORDERED: SODIUM CHLORIDE 0.9% 100 ML BAG ONE (14:19)
[2018-02-18 15:54] VITALS: PULSE 60
[2018-02-18] MEDS ORDERED: LISINOPRIL 5 MG TAB PO STA (16:11)
[2018-02-18] MEDS ORDERED: LISINOPRIL 5 MG TAB PO SCH (21:00)
[2018-02-18] MEDS: LISINOPRIL 10 MG TAB PO SCH (21:19)
[2018-02-18] MEDS: TAMSULOSIN 0.4 MG CAP.ER.24H PO SCH (21:19)
[2018-02-18] MEDS: levETIRAcetam 500 MG TAB PO SCH (21:19)
[2018-02-18] MEDS: METOPROLOL TARTRATE 25 MG TAB PO SCH (21:19)
[2018-02-19 04:39] VITALS: BP 132/79; RESP 18; TEMP 97.4
[2018-02-19 06:46] LABS: Basophils # (A) 0.1 k/uL (0-0.2); Basophils % (A) 1 %; Eosinophils # (A) 0.2 k/uL (0-0.7); Eosinophils % (A) 3 %; HCT 41.1 % (39.0-53.0); HGB 14.5 gm/dL (13.0-17.5); Lymphocytes # (A) 1.4 k/uL (1.0-4.8); Lymphocytes % (A) 19 %; MCH 30.5 pg (25.0-35.0); MCHC 35.3 g/dL (31.0-37.0); MCV 86.4 fL (80.0-100.0); Mean Platelet Volume 7.2; Monocytes # (A) 0.5 k/uL (0-1.0); Monocytes % (A) 6 %; Neutrophils # (A) 5.1 k/uL (1.3-7.7); Neutrophils % (A) 69 %; Platelet Count 192 k/uL (150-450); RBC 4.76 m/uL (4.30-5.90); WBC 7.5 k/uL (3.8-10.6)
[2018-02-19 07:03] LABS: Anion Gap 10 mmol/L; Blood Urea Nitrogen 11 mg/dL (9-20); Calcium 9.1 mg/dL (8.4-10.2); Carbon Dioxide 25 mmol/L (22-30); Chloride 107 mmol/L (98-107); Glucose 93 mg/dL (74-99); Sodium 142 mmol/L (137-145)
[2018-02-19] MEDS ORDERED: ASPIRIN 81 MG PO SCH (09:00)
[2018-02-19] MEDS ORDERED: MULTIVITAMINS, THERA 1 EACH TAB PO SCH (09:00)
[2018-02-19] MEDS ORDERED: CLOPIDOGREL 75 MG TAB PO SCH (09:00)
[2018-02-19] MEDS ORDERED: CHOLECALCIFEROL 1,000 UNIT TAB PO SCH (09:00)
[2018-02-19] MEDS ORDERED: ASCORBIC ACID 500 MG TAB PO SCH (09:00)
[2018-02-19] MEDS ORDERED: amLODIPine 10 MG TAB PO SCH (09:00)
[2018-02-19] MEDS ORDERED: PSYLLIUM HUSK 100% 6 GM PACKET PO SCH (09:00)
[2018-02-19] MEDS ORDERED: METOPROLOL TARTRATE 50 MG TAB PO SCH (09:00)
[2018-02-19] MEDS: levETIRAcetam 500 MG TAB PO SCH (09:01)
[2018-02-19] MEDS: TAMSULOSIN 0.4 MG CAP.ER.24H PO SCH (09:01)
[2018-02-19] MEDS: LISINOPRIL 10 MG TAB PO SCH (09:01)
[2018-02-19] MEDS: METOPROLOL TARTRATE 25 MG TAB PO SCH (09:02)
--- NOTE | 2018-02-19 09:34 | DS ---
DISCHARGE SUMMARY ADMISSION DATE: February 18, 2018. DISCHARGE DATE: February 19, 2018 BRIEF HISTORY: This is a pleasant 67-year-old gentleman who is known to have coronary artery disease and prior stenting of the RCA was performed in 2012 as well as hypertension and dyslipidemia who was experiencing feeling tired, fatigued lately. He underwent a myocardial perfusion imaging stress test and that revealed ischemia. In view of that, a heart catheterization was recommended. The patient underwent heart catheterization yesterday and that revealed intermediate to severe disease involving the proximal LAD where I performed fractional flow reserve of the LAD and that came into be ischemic and in view of that, a stenting of the LAD was recommended. The patient underwent successful stenting of the LAD using a drug-eluting stent with good angiographic results and without any complication. On follow up with him today, he is doing good. He is feeling overall better. He does have good right radial pulse. The patient is going to be discharged home on dual anti-platelet therapy and I will follow up with the patient in 2 weeks in the office. MMODL / IJN: [id number] /
[2018-02-19] MEDS ORDERED: ATORVASTATIN 80 MG TAB PO SCH (21:00)
== END 2018-02-19 09:34 | disposition home or self-care (01) ==
LOC: CATHCVL 07:45 → 6SEL 09:56 → CATHCVL 02-19 09:34
PROVIDERS: ATTEND Internal Medicine Interventional Cardiology
DX: I25.110 Atherosclerotic heart disease of native coronary artery with unstable angina pectoris (principal); R94.39 Abnormal result of other cardiovascular function study; Z95.5 Presence of coronary angioplasty implant and graft; R01.1 Cardiac murmur, unspecified; I10 Essential (primary) hypertension; E78.00 Pure hypercholesterolemia, unspecified; Z79.82 Long term (current) use of aspirin; Z79.899 Other long term (current) drug therapy; Z87.891 Personal history of nicotine dependence
CPT/HCPCS: 93571; 93454; 85347; 80048; 85025; C9600; C1769; C1887; C1725; C1874; C1894; J2001; J2250; J1644; J0583; J0153; Q9967

== ENCOUNTER → 2018-05-18 | Outpatient (CLI) | payer MEDICARE, BC | LOC: LABWHC1 07:39 | PROVIDERS: ATTEND Psychiatry & Neurology Neurology | DX: G40.209 Localization-related (focal) (partial) symptomatic epilepsy and epileptic syndromes with complex partial seizures, not intractable, without status epilepticus (principal) | CPT/HCPCS: 36415; 80177 ==

== ENCOUNTER → 2018-06-04 | Outpatient (CLI) | payer MEDICARE, BC ==
--- NOTE | 2018-06-04 09:59 | MR ---
EXAMINATION TYPE: MR shoulder RT wo con DATE OF EXAM: 06/04/2018 9:45 AM COMPARISON: NONE HISTORY: Rt shoulder pain x 6 mos, hx of surgery 6 years ago TECHNIQUE: Multiplanar, multisequence imaging of the right shoulder is performed without contrast. FINDINGS: There are postsurgical changes in the region of the greater tuberosity. There is no evidence of an os acromiale. There is moderate hypertrophic and inflammatory change in th e right AC joint. The acromion is neutral. There is some superior surface scuffing of the anterior fibers of the infraspinatus tendon. There is evidence of mild tendinosis at the insertion site of the infraspinatus. There is no full-thickness te ar or muscular retraction. There is pseudocystic change in the humeral head and glenoid. The posterior glenoid labrum appears frayed. No discrete tear is seen. The biceps tendon cannot be followed from the biceps tendon groove and is not visualized in the intra -articular portion. IMPRESSION: 1. POSTSURGICAL CHANGE. 2. DEGENERATIVE CHANGE IS PSEUDOCYSTIC FORMATION IN THE HUMERAL HEAD AND GLENOID. 3. FRAYING OF THE POSTERIOR GLENOID LABRUM. 4. MODERATE HYPERTROPHIC CHANGES IN THE RIGHT AC JOINT. 5. I STRONGLY SUSPECT OF THE BICEPS TENDON IS RUPTURED AND RETRACTED WITHIN THE BICEPS TENDON SHEATH. 6. SUPERIOR SURFACE SCUFFING OF THE INFRASPINATUS TENDON WELL TENDINOSIS AT THE INSERTION SITE.
== END | disposition home or self-care (01) ==
LOC: RADMRIMAIN 08:58
PROVIDERS: ATTEND Orthopaedic Surgery
DX: M85.611 Other cyst of bone, right shoulder (principal); M75.81 Other shoulder lesions, right shoulder; M25.811 Other specified joint disorders, right shoulder; M24.211 Disorder of ligament, right shoulder; Z98.890 Other specified postprocedural states

== ENCOUNTER → 2020-04-02 | Outpatient (CLI) | payer MEDICARE, BC ==
--- NOTE | 2020-04-03 09:21 | CT ---
CT CHEST FOR PULMONARY EMBOLISM. EXAMINATION TYPE: CT angio chest DATE OF EXAM: 04/02/2020 INDICATION: THORACIC ANEURYSM CT DLP: 559.5 mGycm, Automated exposure control for dose reduction was used. CONTRAST: Patient injected with 80 mL of Isovue 370. COMPARISON: None TECHNIQUE: CT of the chest is performed on a spiral scan at 2 mm thick sections. Study is performed with intravenous contrast timed for evaluation for the aorta. This will limit additional portions of the evaluation. 3-D MIP images reconstructed by the technologist are reviewed on the computer in th e coronal and sagittal planes. FINDINGS: Portion of the thyroid within the [id number] is clear. The tracheobronchial tree is visualized claudio ears normal. No mediastinal or hilar adenopathy enlarged by CT criteria is evident. The main pulmonary artery cheryl meter at the bifurcation is 2.5 cm. Aorta: The aorta at the aortic root has a transverse dimension of 3.3 cm. The aorta at the main pulmo nary artery is 3.3 cm. The aorta transverse dimension in the mid arch level is 3.0 cm. Aorta at the l evel of the diaphragm measures 2.6 cm. Aorta tapers normally through its visualized course. No dissec tion is evident. The renal arteries superior mesenteric artery and celiac axis takeoffs appear normal . Coronary artery calcification is noted. Lung windows are clear. Limited CT sections through the upper abdomen are unremarkable. IMPRESSIONS: 1. Normal appearing thoracic aorta.
== END | disposition home or self-care (01) ==
LOC: RADCTMAIN 16:49
PROVIDERS: ATTEND Internal Medicine Interventional Cardiology
DX: I71.2 Thoracic aortic aneurysm, without rupture (principal)
CPT/HCPCS: 82565; 84520; 71275; 36415; Q9967

== ENCOUNTER 2022-12-29 10:24 | Day surgery (SDC) | payer MEDICARE, BC ==
[~2022-12-29 10:24] MED LIST changes: -ALPRAZolam 0.25 MG TAB PO PRN; -ALPRAZolam 0.5 MG TAB PO PRN; -ASPIRIN 325 MG TAB PO STA; -ATORVASTATIN 80 MG TAB PO STA; +LACTATED RINGERS 1,000 ML IV SCH; +LIDOCAINE 1% (10MG/ML) FOR IV START INTRADERMA PRN; -NITROGLYCERIN SL TABS 0.4 MG TAB SUBLINGUAL PRN; -SODIUM CHLORIDE 0.9% 1,000 ML in EMPTY BAG 1 BAG IV ONE
[2022-12-29 11:38] VITALS: TEMP 97.3
[2022-12-29] MEDS ORDERED: PROPOFOL 10 MG/ML 20 ML VIAL IV ONE (12:14)
[2022-12-29 12:34] VITALS: RESP 16
[2022-12-29 13:06] VITALS: BP 141/51; PULSE 62
--- NOTE | 2022-12-29 13:13 | P.PCN ---
Date of Procedure: 12/29/22 Procedure(s) Performed: BRIEF HISTORY: Patient is a 72-year-old pleasant white male scheduled for an elective colonoscopy as a part of value should prior history of colon polyps. PROCEDURE PERFORMED: Colonoscopy with snare polypectomy. PREOPERATIVE DIAGNOSIS: History of Colon polyps. IV sedation per Anesthesia. PROCEDURE: After informed consent was obtained, the patient, was brought into the endoscopy unit. IV sedation was administered by Anesthesia under continuous monitoring. Digital rectal examination was normal. Initially the Olympus CF-160 flexible video colonoscope was then inserted in the rectum, gradually advanced into the cecum without any difficulty. Careful examination was performed as the scope was gradually being withdrawn. Ileocecal valve and the appendiceal orifice were visualized and appeared normal. Prep was excellent. Mucosa of the cecum, ascending colon, normal. The transverse colon there was a 5 mm polyp that was removed by snare polypectomy. Rest of the transverse colon, descending colon, sigmoid colon, and rectum appeared normal. Retroflexion was performed in the rectum and weight 2 internal hemorrhoids were seen. The patient tolerated the procedure well. IMPRESSION: 5 mm transverse colon polyp status post polypectomy Grade 2 internal hemorrhoids RECOMMENDATIONS: Findings of this examination were discussed with the patient as well as his family.. He was advised to follow with the biopsy results. If the biopsy results adenoma he can have a repeat colonoscopy in 5 years.
== END 2022-12-29 13:30 | disposition home or self-care (01) ==
LOC: ORWHC2ENDO 10:24
PROVIDERS: ATTEND Internal Medicine Gastroenterology
DX: Z12.11 Encounter for screening for malignant neoplasm of colon (principal); D12.3 Benign neoplasm of transverse colon; K64.1 Second degree hemorrhoids; G47.33 Obstructive sleep apnea (adult) (pediatric); I10 Essential (primary) hypertension; E78.5 Hyperlipidemia, unspecified; I25.10 Atherosclerotic heart disease of native coronary artery without angina pectoris; I25.2 Old myocardial infarction; Z95.5 Presence of coronary angioplasty implant and graft; Z79.899 Other long term (current) drug therapy; Z86.010 Personal history of colon polyps
CPT/HCPCS: 88305; 45385; J2704